=== PATIENT | female | born 1970 | race Hispanic/Latino ===

== ENCOUNTER 2021-02-27 11:00 | Outpatient (CLI) | payer BC ==
--- NOTE | 2021-02-27 13:29 | Mammography Report ---
BONE DEXA CLINICAL: Osteopenia. TECHNIQUE: 2 site bone DEXA performed on an Hologic scanner. FINDINGS: The average total BMD of the forearm is 0.511 g/cm squared with a T score of -1.0 and a Z score of -0 .2. The average total BMD of the right hip is 0.798 g/cm squared with a T score of -1.2 and a Z score of -0.6. IMPRESSION: WHO classification: Osteopenia with increased fracture risk based on right hip measurements. RECOMMENDATION: Clinical correlation and routine screening. Definitions: BMD equal bone mineral density T score = BMD related to peak bone mass of young adult (Ronit expressed an standard deviation) Z score = age-matched BMD expressed in SD World health organization (WHO) diagnostic criteria Normal T score greater than equal to 1 standard deviation Osteopenia T score between -1 and -2.4 standard deviation Osteoporosis T score -2.5 standard deviation or below. Note: BMD is not the only risk factor for fracture; also consider factors such as the patient's age, risk of falling, previous osteoporotic fracture, family history of osteoporotic fractures, current sm oker and low body weight. Z scores are not calculated if greater than 80 years of age. Signer Name: Kade Fischer MD Signed: 02/27/2021 1:24 PM Workstation Name: [id number]
--- NOTE | 2021-02-27 13:41 | Mammography Report ---
BILATERAL DIGITAL SCREENING MAMMOGRAM WITH CAD HISTORY: Screening mammogram. TECHNIQUE: Routine digital mammographic imaging performed. This examination was interpreted with joshua aguilar benefit of Computer-aided Detection analysis. COMPARISON: None currently available. The patient reports prior mammograms at an outside facility and these will be requested. FINDINGS: Breast Density: heterogeneously dense breast parenchymal pattern which somewhat lessens the sensitivi ty of the evaluation. Digital CC and MLO views demonstrate two asymmetries in the posterior retroareolar right breast and s lightly lateral posterior right breast. Both of these are seen on the cc view only. No suspicious fin dings within the left breast. IMPRESSION: Two asymmetries in the posterior right breast for which comparison to prior outside mammograms is rec ommended to assess stability. We will request prior mammograms and an addendum will be added to this report once they are received. BIRADS 0-Incomplete: Needs additional imaging evaluation NOTE: WE WILL RECALL THE PATIENT FOR THIS ADDITIONAL EVALUATION. FURTHER INFORMATION: According to the [employer], yearly mammograms are recommend ed starting at age 40 and continuing as long as a woman is in good health. Clinical Breast Exams shou ld be part of a periodic health exam-about every 3 years for women in their 20s and 30s and every yea r for women 40 and over. Breast self exam is an option for women starting in their 20s. Any breast ch alexandra noted on a breast self exam should be reported promptly to the patient's healthcare provider. Br east MRI is recommended for women with an approximately 20-25% or greater lifetime risk of breast can cer, including women with a strong family history of breast or ovarian cancer and women who have been treated for Hodgkin's disease. A negative Mammography report should not discourage follow up or biopsy of a clinically significant f inding and/or abnormality. Dense breast tissue may obscure small neoplasms. The patient will be entered into a reminder system with a target due date for the next screening mamm ogram. Signer Name: Kade Fischer MD Signed: 02/27/2021 1:36 PM Workstation Name: [id number]
== END 2021-02-27 11:01 | disposition home or self-care (01) ==
LOC: SPVWC 11:00
PROVIDERS: ATTEND Internal Medicine
DX: Z12.31 Encounter for screening mammogram for malignant neoplasm of breast (principal); Z13.820 Encounter for screening for osteoporosis; M85.851 Other specified disorders of bone density and structure, right thigh
CPT/HCPCS: 77067; 77080